=== PATIENT | female | born 1945 ===

== ENCOUNTER 2019-08-30 08:45 | Inpatient (IN) | payer OTHER ==
[~2019-08-30] VITALS: Ht 157.5 cm; Wt 68.0 kg
[2019-08-30] MEDS ORDERED: TENORMIN25 MG PO (11:30)
[2019-08-30] MEDS ORDERED: JANUMET 50-5001 EACH PO (11:30)
[2019-08-30] MEDS ORDERED: TENORETIC 1001 EACH PO (12:03)
[2019-09-05] MEDS ORDERED: PERCOCET 5-3251 EACH PO (11:55)
[2019-09-05] MEDS ORDERED: DUI500 PO (11:55)
[2019-09-05] MEDS ORDERED: ELIQUIS2.5 MG PO (11:55)
== END 2019-09-05 17:02 | DRG 470 ==
LOC: O/R 08:45 → SURH 09-03 05:50
PROVIDERS: ADMIT Orthopaedic Surgery
PROC: 0MNP0ZZ Release Left Knee Bursa and Ligament, Open Approach (ICD-10-PCS; 2019-09-03)
PROC: 0SRD0J9 Replacement of Left Knee Joint with Synthetic Substitute, Cemented, Open Approach (ICD-10-PCS; principal; 2019-09-03 15:15)
DX: M17.12 Unilateral primary osteoarthritis, left knee (principal); D62 Acute posthemorrhagic anemia; M81.0 Age-related osteoporosis without current pathological fracture; M22.12 Recurrent subluxation of patella, left knee; Z96.652 Presence of left artificial knee joint; E11.9 Type 2 diabetes mellitus without complications